=== PATIENT | female | born 1990 | race Caucasian/White ===

== ENCOUNTER 2018-06-27 11:57 | Emergency (ER) | payer OTHER ==
[2018-06-27 12:12] VITALS: BP 112/63
--- NOTE | 2018-06-27 13:25 | ED Physician Documentation ---
PD HPI HEENT - Stated complaint Stated Complaint: SWOLLEN THROAT/NECK PX - Chief complaint Chief Complaint: Heent - History obtained from History obtained from: Patient - History of Present Illness Timing - onset: Other (Sore throat for 4 days without fevers, URI symptoms, hurts to talk and eat but her voice is not changed.) Review of Systems Constitutional: denies: Fever, Chills Throat: reports: Sore throat. denies: Oral lesions / sores Cardiac: denies: Palpitations Respiratory: denies: Dyspnea, Cough PD PAST MEDICAL HISTORY - Present Medications Home Medications: Ambulatory Orders Medication Instructions Recorded Confirmed predniSONE [Deltasone] 60 mg PO DAILY 5 Days tablet 06/27/18 - Allergies Allergies/Adverse Reactions: Allergies Allergy/AdvReac Type Severity Reaction Status Date / Time cefaclor [From Ceclor] Allergy Unknown Verified 06/27/18 12:12 Penicillins Allergy Unknown Verified 06/27/18 12:12 PD ED PE NORMAL - Vitals Vital signs reviewed: Yes - General General: Alert and oriented X 3, No acute distress - HEENT HEENT: Ears normal, Other (Tonsils look okay but she does have pretty significant anterior cervical adenopathy with a supple neck.) - Respiratory Respiratory: No respiratory distress, Clear bilaterally - Derm Derm: No rash Results - Vitals Vitals: Vital Signs - 24 hr 06/27/18 12:06 Temperature 36.6 C Heart Rate 89 Respiratory 18 Rate Blood Pressure 112/63 O2 Saturation 100 Oxygen O2 Source Room air - Labs Labs: Laboratory Tests 06/27/18 12:13 Group A Strep Rapid Negative PD MEDICAL DECISION MAKING - Sepsis Event Vital Signs: Vital Signs - 24 hr 06/27/18 12:06 Temperature 36.6 C Heart Rate 89 Respiratory 18 Rate Blood Pressure 112/63 O2 Saturation 100 Oxygen O2 Source Room air Departure - Departure Disposition: 01 Home, Self Care Clinical Impression: Viral pharyngitis Condition: Good Record reviewed to determine appropriate education?: Yes Instructions: ED Pharyngitis Viral Report Pending Prescriptions: predniSONE [Deltasone] 60 mg PO DAILY 5 Days tablet
== END 2018-06-27 13:33 | disposition home or self-care (01) ==
LOC: ED 11:57
DX: J02.8 Acute pharyngitis due to other specified organisms (principal); B97.89 Other viral agents as the cause of diseases classified elsewhere
CPT/HCPCS: 87070; 87430; 99283

== ENCOUNTER 2018-09-03 13:43 | Emergency (ER) | payer OTHER ==
[2018-09-03 13:51] VITALS: BP 117/99
[2018-09-03] MEDS ORDERED: DEXAMETHASONE 10 MG/ML VIAL PO STA (14:18)
--- NOTE | 2018-09-03 14:23 | ED Physician Documentation ---
PD HPI HEENT - Stated complaint Stated Complaint: EAR PX/COUGH - Chief complaint Chief Complaint: Heent - History obtained from History obtained from: Patient - History of Present Illness Timing - onset: How many weeks ago (2) Timing - duration: Weeks (2) Timing - details: Gradual onset, Still present Location: Right ear, Left ear, Sinuses Improves: Medication Worsens: Swalllowing Associated symptoms: Congestion, Rhinorrhea, Cough Similar symptoms before: Diagnosis (OM) Recently seen: Not recently seen - Additional information Additional information: 28-year-old female mother of 2 young infants has developed a cough and congestion over the past 2 weeks. She states she is coughing up yellow-green phlegm she has some sinus congestion sinus pain as well as ear pain. She has only mild sore throat. Review of Systems Constitutional: reports: Fever, Chills, Myalgias, Fatigue, Sweats Eyes: denies: Decreased vision Ears: reports: Ear pain Nose: reports: Rhinorrhea / runny nose, Congestion, Sinus pressure / pain Throat: reports: Sore throat Cardiac: denies: Chest pain / pressure, Palpitations Respiratory: reports: Cough GI: denies: Vomiting PD PAST MEDICAL HISTORY - Past Surgical History Past Surgical History: No - Present Medications Home Medications: Ambulatory Orders Medication Instructions Recorded Confirmed Anti Depressant 09/03/18 Azithromycin [Zithromax] 250 mg PO DAILY #6 tablet 09/03/18 - Allergies Allergies/Adverse Reactions: Allergies Allergy/AdvReac Type Severity Reaction Status Date / Time cefaclor [From Ceclor] Allergy Unknown Verified 09/03/18 13:50 Penicillins Allergy Unknown Verified 09/03/18 13:50 - Social History Does the pt smoke?: No Smoking Status: Never smoker Does the pt drink ETOH?: No Does the pt have substance abuse?: No - Immunizations Immunizations are current?: Yes - POLST Patient has POLST: No PD ED PE NORMAL - Vitals Vital signs reviewed: Yes (hypertensive diastolic ) - General General: Alert and oriented X 3, No acute distress, Well developed/nourished, Other (There is a sinus quality to the voice .) - HEENT HEENT: Atraumatic, PERRL, EOMI, Other (The right TM is retracted and there is no inflamation The left is clear. The pharynx is with mild erythema and exudate and there is bilateral maxillary sinus point tenderness. ) - Neck Neck: Supple, no meningeal sign, No bony TTP - Cardiac Cardiac: RRR, No murmur - Respiratory Respiratory: No respiratory distress, Clear bilaterally - Abdomen Abdomen: Soft, Non tender - Back Back: No CVA TTP, No spinal TTP - Derm Derm: Normal color, Warm and dry, No rash - Extremities Extremities: No deformity, No edema - Neuro Neuro: Alert and oriented X 3, validation intern 2-12 intact, No motor deficit, No sensory deficit, Normal speech Eye Opening: Spontaneous Motor: Obeys Commands Verbal: Oriented GCS Score: 15 - Psych Psych: Normal mood, Normal affect Results - Vitals Vitals: Vital Signs - 24 hr 09/03/18 13:48 Temperature 36.6 C Heart Rate 89 Respiratory 18 Rate Blood Pressure 117/99 H O2 Saturation 100 Oxygen O2 Source Room air PD MEDICAL DECISION MAKING - ED course Complexity details: reviewed old records, considered differential, d/w patient ED course: 28-year-old female with ear pain and sinus point tenderness likely has some eustachian tube dysfunction. She is administered dexamethasone 10 mg orally and we will place her on some azithromycin as she is penicillin allergic Departure - Departure Disposition: Home, Self Care Clinical Impression: Sinusitis, acute Qualifiers: Sinusitis location: maxillary Recurrence: not specified as recurrent Qualified Code(s): J01.00 - Acute maxillary sinusitis, unspecified Eustachian tube dysfunction Qualifiers: Laterality: right Qualified Code(s): H69.81 - Other specified disorders of Eustachian tube, right ear Condition: Stable Instructions: ED Sinusitis Abx Tx Follow-Up: [facility] [Provider Group] Prescriptions: Azithromycin [Zithromax] 250 mg PO DAILY #6 tablet
[2018-09-03] MEDS ORDERED: CHERRY SYRUP 10 ML UDC PO ONE (14:25)
== END 2018-09-03 14:39 | disposition home or self-care (01) ==
LOC: ED 13:43
DX: J01.00 Acute maxillary sinusitis, unspecified (principal); H69.81 Other specified disorders of Eustachian tube, right ear
CPT/HCPCS: 99283; A9270

== ENCOUNTER 2019-09-16 20:14 | Emergency (ER) | payer OTHER ==
--- NOTE | 2019-09-16 20:22 | ED Physician Documentation ---
PD HPI HEENT - Stated complaint Stated Complaint: JOHN,SORE THROAT - History obtained from History obtained from: Patient - History of Present Illness Timing - onset: Today Timing - details: Gradual onset Location: Throat, Other (generalized headache) Improves: Nothing Worsens: Swalllowing Associated symptoms: Congestion Recently seen: Not recently seen - Additional information Additional information: presents to ED c/o headache, sore throat since this morning. Her son and daughter are also registered as ED patients at this time with similar symptoms. subjective fever; felt like she might have had a fever earlier but didn't take temperature. "my ears hurt a lot" and "my throat feels scratchy" Review of Systems Ears: reports: Ear pain (bilateral) Nose: reports: Congestion Throat: reports: Sore throat Respiratory: reports: Cough (mild, [employer]). denies: Dyspnea GI: denies: Abdominal Pain PD PAST MEDICAL HISTORY - Past Medical History Past Medical History: No - Past Surgical History Past Surgical History: No - Present Medications Home Medications: Ambulatory Orders Medication Instructions Recorded Confirmed Anti Depressant 09/03/18 Azithromycin [Zithromax] 250 mg PO DAILY #6 tablet 09/03/18 - Allergies Allergies/Adverse Reactions: Allergies Allergy/AdvReac Type Severity Reaction Status Date / Time cefaclor [From Ceclor] Allergy Unknown Verified 09/16/19 20:27 Penicillins Allergy Unknown Verified 09/16/19 20:27 - Living Situation Living Situation: reports: With family Living Arrangement: reports: At home - Social History Does the pt smoke?: No Smoking Status: Never smoker Does the pt drink ETOH?: No Does the pt have substance abuse?: No - Immunizations Immunizations are current?: Yes - POLST Patient has POLST: No PD ED PE NORMAL - Vitals Vital signs reviewed: Yes - General General: Alert and oriented X 3, No acute distress, Well developed/nourished - HEENT HEENT: Ears normal, Moist mucous membranes, Pharynx benign - Neck Neck: Supple, no meningeal sign - Respiratory Respiratory: No respiratory distress, Clear bilaterally Results - Vitals Vitals: Vital Signs - 24 hr 09/16/19 20:27 Temperature 36.6 C Heart Rate 83 Respiratory 16 Rate Blood Pressure 114/63 O2 Saturation 98 Oxygen O2 Source Room air - Labs Labs: Laboratory Tests 09/16/19 20:40 Group A Strep Rapid Negative PD MEDICAL DECISION MAKING - ED course Complexity details: reviewed results, re-evaluated patient, considered differential, d/w patient Departure - Departure Disposition: Home, Self Care Clinical Impression: Upper respiratory infection Condition: Good Instructions: ED Pharyngitis Viral Report Pending Follow-Up: [facility] [Provider Group]
[2019-09-16 20:29] VITALS: BP 114/63
== END 2019-09-16 21:25 | disposition home or self-care (01) ==
LOC: ED 20:14
DX: J06.9 Acute upper respiratory infection, unspecified (principal)
CPT/HCPCS: 87070; 87430; 99283